=== PATIENT | male | born 1980 | race Caucasian/White ===

== ENCOUNTER 2023-04-29 18:13 | Emergency (ER) | payer OTHER, SELFPAY ==
--- NOTE | ~2023-04-29 | XR_ITS ---
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 RESULT: Lines, tubes, and devices: None. Lungs and pleura: Multiple bilateral calcified granulomas, otherwise clear. Cardiomediastinal silhouette: Stable. Other: No acute osseous or upper abdominal finding. IMPRESSION: No acute cardiopulmonary process. Reviewed, dictated and finalized at location K. HAMMER OPERATOR HELPER
[2023-04-29 18:33] VITALS: BP 125/86; PULSE 84; RESP 18; TEMP 36.7; O2SAT 96
--- NOTE | 2023-04-29 18:37 | ED.URI ---
HPI - URI/Sore Throat General Chief Complaint: Upper Respiratory Infection Stated Complaint: cough,congestion,headache Source: patient Mode of arrival: ambulatory Limitations: no limitations History of Present Illness HPI Narrative: 42-year-old male presented for complaint of cough, wheezing, and chest congestion for over 3 weeks. Reports the cough is now becoming productive of thick sputum over the last few days, and causes headaches; also reports fatigue x2 days. Denies sob, chest pain, palpitations, n/v/d/f/c. Taking NyQuil. Related Data Home Medications Medication Instructions Recorded Confirmed lisinopril 20 1 tablet PO DAILY 04/29/23 04/29/23 mg-hydrochlorothiazide 12.5 mg tablet Allergies Allergy/AdvReac Type Severity Reaction Status Date / Time No Known Allergies Allergy Verified 04/29/23 18:38 Review of Systems Review of Systems: CONSTITUTIONAL: Denies body aches, fever, chills, or sweats. EYES: Denies visual changes, redness, or discharge. ENT: Denies rhinorrhea, congestion, sore throat, or otalgia. CARDIOVASCULAR: Denies chest pain, palpitations, or edema. RESPIRATORY: Reports cough, wheezing, denies sob GASTROINTESTINAL: Denies abdominal pain, nausea, vomiting, or diarrhea. SKIN: Denies rash, itching, or wounds. MUSCULOSKELETAL: Denies back pain, joint pain, or myalgia. NEUROLOGIC: Denies headache, numbness, tingling, or weakness. All systems reviewed & are unremarkable except as noted in HPI and below PMFSH Past Medical History Medical History (Updated 04/29/23 @ 19:35 by Nathaly Morrow APRN) HTN (hypertension) Comments At time of signature, I have reviewed and agree with nursing past medical, surgical, social and family history unless otherwise noted. Please see nursing chart for further information. There is no relevant family history pertinent to the presenting complaint Exam Narrative: GENERAL: mildly ill-appearing, in no acute distress. EYES: EOMI. No redness or drainage. Conjunctivae normal. ENT: Mucous membranes pink and moist. No rhinorrhea. TMs normal bilaterally. Throat normal. Uvula midline. CHEST: No respiratory distress. Wheezing to all gao. 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 Speaks full sentences. HEART: Regular rate and rhythm. No murmur appreciated. ABDOMEN: Soft, nontender, nondistended, normal active bowel sounds. EXTREMITIES: Normal range of motion. No edema. SKIN: Warm, dry, no rash. Capillary refill normal. Normal skin turgor. NEURO: Alert and oriented x3. Gait steady. PSYCH: Normal affect. Course Course Emergency Course: Patient is aware of diagnosis, understands and agrees to treatment plan. Anticipatory guidance given. Patient agrees to follow-up as directed and is aware of reasons to seek care at the emergency department. Portions of this record may have been created with voice recognition software Level of Care: Express Care Visit Vital Signs Vital signs: Vital Signs Temperature 98.1 F 04/29/23 18:33 Pulse Rate 84 04/29/23 18:33 Respiratory Rate 18 04/29/23 18:33 Blood Pressure 125/86 04/29/23 18:33 Pulse Oximetry 96 04/29/23 18:33 Oxygen Delivery Room Air 04/29/23 18:33 Temperature 98.1 F 04/29/23 18:33 Pulse Rate 84 04/29/23 18:33 Respiratory Rate 18 04/29/23 18:33 Blood Pressure 125/86 04/29/23 18:33 Pulse Oximetry 96 04/29/23 18:33 Oxygen Delivery Room Air 04/29/23 18:33 MDM - URI/Sore Throat MDM Narrative Medical decision making narrative: Pt presented for c/o cough and wheezing for about 3 weeks. Results of chest x-ray reviewed with patient. Pt reassessed after DuoNeb; still with wheezing. Denies sob, palpitations, dizziness, n/v/f/c. Discussed physical exam findings c/w bronchitis, and reviewed Rx's. Advised supportive measures and signs/symptoms to go to the ER at length. Pt is appropriate for outpt treatment and f/u with pcp, advised to call Monday for f/u. Differe
[2023-04-29] MEDS: ALBUTEROL SULFATE NEB 2.5 MG/3 ML INH INHALATION (18:57)
[2023-04-29] MEDS: IPRATROPIUM BR 0.02% INH SOLN 0.5 MG/2.5 ML VIAL INHALATION (18:59)
== END 2023-04-29 19:33 | disposition home or self-care (01) ==
PROVIDERS: Emergency Provider Nurse Practitioner Family; PCP Family Medicine
DX: J40 Bronchitis, not specified as acute or chronic (principal); I10 Essential (primary) hypertension
CPT/HCPCS: 71046; 94640; 99213; G0463

== ENCOUNTER 2025-02-16 10:37 | Emergency (ER) | payer OTHER, SELFPAY ==
--- NOTE | ~2025-02-16 | XR_ITS ---
Examination: XR chest 2V Clinical History: cough, left lung- hurts to breath, SOB on exertion Comparison: X-ray 04/29/2023 Technique: PA and Lateral Findings: Cardiomediastinal silhouette normal size and configuration. Lungs clear. A few calcified granulomata. No acute bony abnormality. IMPRESSION: 1. No acute cardiopulmonary findings. Reviewed, dictated and finalized at location R.
--- NOTE | 2025-02-16 10:38 | ED_ITS ---
HPI - URI/Sore Throat General Chief Complaint: Back Pain/Injury Stated Complaint: Hurts to breathe Time Seen by Provider: 02/16/25 10:37 Source: patient Mode of arrival: ambulatory Limitations: no limitations History of Present Illness HPI Narrative: Subhash is a 44-year-old male patient presenting to the clinic today with complaints of pain with breathing after inhaling some test on Monday. Reports pain is on the left side of his back and now into his sternum. Hurts to take a deep breath in. Has been using his albuterol inhaler. He reports when coughing he brought up some brown phlegm this morning. Is having some shortness of breath on exertion. History of asthma. States he has had this pain before was given steroids and that improved his symptoms. He is a nonsmoker. Patient denies any blood clotting disorder, recent surgery, recent travel, or coughing up blood. No clinical sign of DVT. He is not on any hormone therapy. Related Data Home Medications ?Medication ?Instructions ?Recorded ?Confirmed ?Last Taken ?Type lisinopril 20 1 tablet PO DAILY 04/29/23 1 06/30/22 Unknown History mg-hydrochlorothiazide 12.5 mg tablet Allergies Allergy/AdvReac Type Severity Reaction Status Date / Time No Known Allergies Allergy Verified 04/29/23 18:38 Review of Systems Review of Systems: Pertinent positives per HPI. Patient denies any fever, chills, rash, headache, visual changes, dizziness, shortness of breath, palpitations, nausea, vomiting, diarrhea, constipation, abdominal pain, or any urinary issues. [facility] Past Medical History Medical History HTN (hypertension) Comments At the time of my signature, I reviewed and agree with the nursing past medical, surgical, social, and family history. There is no relevant family history pertinent to the patient complaint. Exam Narrative: General: Well-developed, obese, in no apparent distress Head: Normocephalic, atraumatic Eyes: Pupils equally round and reactive to light bilaterally, EOM intact, sclera and conjunctive clear, no discharge, lids normal Ears: TMs intact and clear, ear canals clear, no drainage, grossly hearing normal. Nose: Nares patent, no discharge, no inflammation, no sinus tenderness. Mouth: Oral pharynx without lesions or masses, good dentition, MMM. Neck: Supple, trachea midline, no enlargement of anterior or posterior cervical nodes, no thyroid masses or goiter palpable. Cardio: Regular rate and rhythm, s1 and s2 normal, no murmur appreciated. Resp: Faint crackles over the left middle and lower lobe, no rhonchi, rales, wheezing or rubs Course Course Emergency Course: Portions of this record may have been created with voice recognition software. Level of Care: Express Care Visit Vital Signs Vital signs: Vital Signs Temperature 36.3 C L 02/16/25 10:46 Pulse Rate 76 02/16/25 10:46 Respiratory Rate 18 02/16/25 10:46 Blood Pressure 130/72 02/16/25 10:46 Pulse Oximetry 97 02/16/25 10:46 Oxygen Delivery Room Air 02/16/25 10:46 Temperature 36.3 C L 02/16/25 10:46 Pulse Rate 76 02/16/25 10:46 Respiratory Rate 18 02/16/25 10:46 Blood Pressure 130/72 02/16/25 10:46 Pulse Oximetry 97 02/16/25 10:46 Oxygen Delivery Room Air 02/16/25 10:46 Vital signs reviewed MDM - URI/Sore Throat MDM Narrative Medical decision making narrative: At the time of visit patient is resting comfortably on the exam table. Patient appears to be nontoxic. Complaints of pain with breathing after inhaling some test on Monday. Reports pain is on the left side of his back and now into his sternum. Hurts to take a deep breath in. Has been using his albuterol inhaler. He reports when coughing he brought up some brown phlegm this morning. Is having some shortness of breath on exertion. History of asthma. States he has had this pain before was given steroids and that improved his symptoms. He is a nonsmoker. Patient denies any blood clotting disorder, recent surgery, recent travel, or coughing up blood. No clinical sign of DVT. He is not on any hormone therapy. Diagnostics: Chest x-ray is negative for any acute cardiopulmonary process. Plan: I suspect patient has bronchitis-other less likely differential diagnosis includes pleurisy, chest wall pain, PE. Wells criteria PE score 0. Prescription for azithromycin, prednisone, and albuterol inhaler was sent to the pharmacy. Supportive measures were discussed with the patient and they voiced understanding discharge instructions and agrees to treatment plan. Return precautions reviewed Well criteria for PE: 0.0?points Low risk group: 1.3% chance of PE in an ED population. Another study assigned scores <= as ?PE Unlikely? and had a 3% incidence of PE. Differential Diagnosis Differential diagnosis: Likely upper respiratory infection, otitis media, sinusitis, viral infection (PE, pneumonia, pleurisy, chest wall pain), bronchiti s, influenza, pharyngitis and other (COVID) Imaging Data Radiologist's impression: [address] [address] XRay Report Signed Patient: Subhash Way : 1980 MR#: [id number] Age: 44 Acct:[id number] Loc: [facility] ADM Date: 02/16/25Attending Dr: Ordering Physician: Huang Foreman APRN Date of Service: 02/16/25 Procedure(s): XR chest 2V Accession Number(s): [id number] cc: Huang Foreman APRN; Alejandro, Cresencio Harding MD~ Examination: XR chest 2V Clinical History: cough, left lung- hurts to breath, SOB on exertion Comparison: X-ray 04/29/2023 Technique: PA and Lateral Findings: Cardiomediastinal silhouette normal size and configuration. Lungs clear. A few calcified granulomata. No acute bony abnormality. IMPRESSION: 1. No acute cardiopulmonary findings. Reviewed, dictated and finalized at location R. Please be advised this is a medical document. It is intended for hfel-lg-qrok communication. It is written in medical language and may contain unfamiliar abbreviations or verbiage. Medical documents are intended to carry relevant information, facts as evident, and the clinical opinion of the practitioner at the time of the encounter. This report may have been done utilizing a voice recognition system. Attempts have been made to correct errors. However, there may be uncorrected grammatical, spelling, and recognition errors present. The file time of this note does not necessarily represent the time of service. Dictated By: Emir Degroot MD 02/16/251104 Signed By: <Electronically signed by Emir Degroot MD in OV> 02/16/25 1105 Discharge Plan Discharge Clinical Impression: Bronchitis Patient Disposition: Home Condition: Stable Instructions: Antibiotic Form, Acute Bronchitis (ED) Additional Instructions: Chest x-rays negative for any acute cardiopulmonary process. Take prescription medications only as prescribed-azithromycin, prednisone, and albuterol inhaler Increase fluids and stay well hydrated May take Tylenol or motrin as directed on bottle for pain/fever Go to the ED if you develop a worsening in your condition- high fever not controlled by Tylenol or Motrin, dehydration, weakness, lethargy, shortness of breath, or chest pain. Follow up with your PCP in 3-5 days if symptoms persist. Patient Language: Ukrainian Prescriptions: New azithromycin 250 mg tablet See Rx Instructions .ROUTE .COMPLEX Qty: 6 0RF Rx Instructions: For 250 mg dose pack: take 500 mg today (day 1), then 250 mg for 4 days (days 2-5) prednisone 20 mg tablet 40 mg PO DAILY 5 Days Qty: 10 0RF albuterol sulfate 90 mcg/actuation HFA aerosol inhaler 2 puff inhalation Q4-6H PRN (Reason: shortness of breath or wheezing) 30 Days Qty: 8.5 0RF No Action lisinopril-hydrochlorothiazide 20-12.5 mg tablet 1 tablet PO DAILY codeine-guaifenesin [Guaifenesin AC] 10-100 mg/5 mL liquid 10 ml PO Q8H PRN (Reason: cough) Qty: 120 0RF methylprednisolone [Medrol (Praveen)] 4 mg tablets,dose pack See Rx Instructions .ROUTE .COMPLEX Qty: 21 0RF Rx Instructions: orally per package directions albuterol sulfate 90 mcg/actuation HFA aerosol inhaler 2 inh inhalation QID PRN (Reason: shortness of breath or wheezing) Qty: 8.5 0RF amoxicillin-pot clavulanate 875-125 mg tablet 1 tablet PO Q12H 7 Days Qty: 14 0RF Follow-up/Referrals: Alejandro,Cresencio Harding MD [Primary Care Provider] Time of Disposition: 11:12 Quality NIHSS Nursing Documentation ED NIHSS nursing documentation: reviewed/agree
--- OUTSIDE RECORDS SUMMARY | 2025-02-16 10:39 | XMS_ITS | Clinical Summary ---
Author Organization [facility] Address [address] [place] [address] Care Team Providers Care Vice President Network Development Name Role Phone Cresencio Allen MD Primary Care Provider [phone] Allergies No known active allergies Medications albuterol sulfate HFA 108 (90 Base) MCG/ACT inhalerIndication s:Subacute cough Inhale 2 puffs into the lungs every 4 (four) hours as needed for Wheezing. 6.7 g 2 4 Active lisinopril-hydroC HLOROthiazide (ZESTORETIC) 20-12.5 MG tabletIndications :Essential hypertension Take 1 tablet by mouth daily. 90 tablet 5 Active lisinopril-hydroC HLOROthiazide (ZESTORETIC) 20-12.5 MG tabletIndications :Essential hypertension Take 1 tablet by mouth daily. 90 tablet 5 02/06/20 25 Discontinu ed(Reorder ) Active Problems Problem Noted Date Diagnosed Date Essential hypertension 03/15/2019 Anxiety 03/15/2019 Resolved Problems Problem Noted Date Diagnosed Date Resolved Date Cough 06/18/2021 11/01/2024 Ureteral stone 05/29/2018 11/19/2021 Family History Medical History Relation Comments Heart Father Heart Attack Father Hyperlipidemia Father Hypertension Father Cancer Mother Hyperlipidemia Mother Hypertension Mother None Mother Relation Status Comments Father Alive Mother Alive Social History Tobacco Use Types Packs/Day Years Used Date Smoking Tobacco: Never Smokeless Tobacco: Former Chew Tobacco Cessation:Counseling Given: No Alcohol Use Standard Drinks/Week Comments No 0 (1 standard drink = 0.6 oz pur e alcohol) AUDIT-C Answer Date Recorded Frequency of Alcohol Consumption Never 04/27/2018 Average Number of Drinks Not on file 018 Frequency of Binge Drinking Not on file 11/2017 PHQ-2 Answer Date Recorded Patient Health Questionnaire-2 Score 0 11/01/2024 Education Answer Date Recorded What is the highest level of school you have completed or the highest degree you have received? 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 Sexual Orientation Straight 05/11/2018 1: 06 PM HONING MACHINE TRY OUT SETTER Last Filed Vital Signs Vital Sign Reading Time Taken Comments Blood Pressure 122/75 11/01/2024 4:18 PM CDT Pulse 87 11/01/2024 4:18 PM CDT Temperature 36.8 C (98.2 F) 11/01/2024 4:18 PM CDT Respiratory Rate 14 11/01/2024 4:18 PM CDT Oxygen Saturation 97% 11/01/2024 4:18 PM CDT Inhaled Oxygen Concentration - - Weight 155.1 kg (342 lb) 11/01/2024 4:18 PM CDT Height 190.5 cm (6' 3) 11/01/2024 4:18 PM CDT Body Mass Index 42.75 11/01/2024 4:18 PM CDT Plan of Treatment Upcoming Encounters Date Type Department Care Team (Late st Contact Info) Description 02/19/2025 4:20 PM CDT Office Visit [facility] [address] [address] Cresencio Allen MD [address] [place] [address] [id number] Health Maintenance Due Date Last Done Comments Annual Physical 1984 Hepatitis C 09/02/1999 DTaP, Tdap and Td Vaccines ( 1 - Tdap) 2000 Hepatitis B Vaccines (1 of 3 - 19+ 3-dose series) 2000 HPV Vaccines (1 - 3-dose SCD M series) 2008 COVID-19 Vaccine (2023-2 5 season) 2025 PHQ-2 (Physician [place]) Completed 11/01/2024 Meningococcal B Vaccine Aged Out No l onger eligible based on patient's age to complete this topic Meningococcal Vaccine Aged Out No essence mildred eligible based on patient's age to complete this topic Pneumococcal Vaccine: Pediat rics (0 to 5 Years) and At-Risk Patients (6 to 49 Years) Aged Out No longer eligi ble based on patient's age to complete this topic RSV Immunizations Under 20 Months Aged Out No longer eligible based on patient's age to complete this topic Insurance [facility] CIG Care Teams Vice President Network Development Relationship Specialty [place] [address] [place] [address] PCP - General FAMILY PRACTICE 04/27/18
--- OUTSIDE RECORDS SUMMARY | 2025-02-16 10:39 | XMS_ITS | Clinical Summary ---
Author Organization [facility] Address [address] [place] [address] Care Team Providers Care Public Administration Teacher Name Role Phone Mohit Bernal MD Primary Care Provider Allergies No known active allergies Medications lisinopriL (PRINIVIL,ZESTRIL ) 20 mg tablet Take 20 mg by mouth daily Active lisinopril-hydroC HLOROthiazide (ZESTORETIC) 20-12.5 mg per tablet Take 1 tablet by mouth daily 1 Active montelukast (SINGULAIR) 10 mg tabletIndications :Moderate persistent asthma with acute exacerbation Take 1 tablet (10 mg total) by mouth nightly 90 tablet 1 2 Active albuterol HFA (PROVENTIL HFA,VENTOLIN HFA,PROAIR HFA) 90 mcg/actuation inhalerIndication s:Acute Asthma Attack Inhale 2 puffs every 4 (four) hours as needed for wheezing or shortness of breath 8.5 g 2 Active fluticasone furoate-vilantero L (Breo Ellipta) 200-25 mcg/dose diskus inhalerIndication s:Moderate persistent asthma with acute exacerbation Inhale 1 puff daily Rinse mouth with water after use. Do not swallow. 60 each 1 2 Active Active Problems Problem Noted Date Diagnosed Date Cough 06/18/2021 Anxiety 03/15/2019 Essential hypertension 03/15/2019 Ureteral stone 05/29/2018 Medical History Medical History Date Comments Asthma Heart problem High blood pressure SOB (shortness of breath) Family History Medical History Relation Name Comments Heart disease Father Cancer Mother Relation Name Status Comments Father Mother Social History Tobacco Use Types Packs/Day Years Used Date Smoking Tobacco: Never Smokeless Tobacco: Never Personal Safety Answer Date Recorded Getting School Help Needed Not on file 07/17 Sex and Gender Information Value Date Recorded Sex Assigned at Not on file 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 Gender Identity Not on file Sexual Orientation Not on file Obstetrics History Last Filed Vital Signs Vital Sign Reading Time Taken Comments Blood Pressure 140/86 07/12/2021 3:23 PM CARTON WAXING 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 Pulse 98 07/12/2021 3:23 PM CARTON WAXING 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 Temperature 37.2 C (99 F) 07/12/2021 3:23 PM CARTON WAXING 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 Respiratory Rate 20 07/12/2021 3:23 PM CARTON WAXING 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 Oxygen Saturation 95% 07/12/2021 3:23 PM CARTON WAXING 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 Inhaled Oxygen Concentration - - Weight 155.9 kg (343 lb 9.6 oz) 07/12/2021 3:23 PM 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 Height 190.5 cm (6' 3) 07/12/2021 3:23 PM CARTON WAXING 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 Body Mass Index 42.95 07/12/2021 3:23 PM CARTON WAXING 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 Plan of Treatment Health Maintenance Due Date Last Done Comments Depression Screening 1980 Hepatitis C Screening 1980 DTaP/Tdap/Td Vaccine (1 - Tdap) 1992 Varicella Vaccines (1 of 2 - 13+ 2-dose series) 1994 Hepatitis B Screening 09/02/1999 Regular Well Visit/Exam 18-64 09/02/1999 HPV Vaccines (1 - 3-dose SCD M series) 2008 Influenza Vaccine (#1) 2025 Pneumococcal vaccine <65 Aged Out No longer eligible based on patient's age to complete this topic Insurance CIG[employer] CIGNA OPEN ACCESS CIG Care Teams Public Administration Teacher Relationship Specialty [place] [id number] [address] PCP - General Internal Medicine 07/12/21
--- OUTSIDE RECORDS SUMMARY | 2025-02-16 10:39 | XMS_ITS | Clinical Summary ---
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 Gender Identity Not on file Sexual Orientation Not on file Plan of Treatment Health Maintenance Due Date Last Done Comments Hepatitis C Virus (HCV) Screening 1980 TdaP Immunization 1980 Hepatitis B Immunization (1 of 3 - 19+ 3-dose series) 2000 Human Papillomavirus (HPV) Immunization (1 - 3-dose SCDM series) 2008 SARS-COV-2 Immunization ( season) 2024 Influenza Immunization (#1) 2025 Respiratory Syncytial Virus (RSV) Immunization (Adult) (1 - 1-dose 75+ series) 2056 Meningococcal Immunization (ACWY) Aged Out No longer eligible based on patient's age to complete this topic Pneumococcal Immunization Combined Aged Out No longer eligible based on patient's age to complete this topic Rotavirus Immunization Aged Out No lo nger eligible based on patient's age to complete this topic
[2025-02-16 10:46] VITALS: BP 130/72; PULSE 76; RESP 18; TEMP 36.3; O2SAT 97
== END 2025-02-16 11:23 | disposition home or self-care (01) ==
PROVIDERS: Emergency Provider Nurse Practitioner Family; PCP Family Medicine
DX: J40 Bronchitis, not specified as acute or chronic (principal); I10 Essential (primary) hypertension
CPT/HCPCS: 71046; 99203; G0463